=== PATIENT | female | born 1930 | race Hispanic/Latino ===

== ENCOUNTER 2019-08-24 19:10 | Inpatient (IN) | payer MEDICARE ==
[~2019-08-24] VITALS: Ht 157.5 cm; Wt 79.4 kg
[~2019-08-24 19:10] MED LIST: ACETTAB3 OR; ADULT ASPIRIN E81 MG PO; AMLODIPINE5 MG PO; ASA LOW DOSE81 MG OR; ECOTRIN325 MG OR; GENTAMICIN15 ML/BTL OP; HYDROCHLOROT12.5 MG PO; HYDROCORT2.5 % TOP; HYDROXYZ HCL25 MG PO; HYZAAR1 TA1 OR; LEVOTHROID50 MCG OR; LEVOTHYROXIN50 MCG PO; LEVOTHYROXIN75 MCG OR; LOSARTAN POTASS50 MG PO; MELOXICAM7.5 MG OR; NOVOLIN 70/30 SC; OMEPRAZOLE20 MG PO; TRAMADOL HCL50 MG PO; TRIPLE ANTI1 OP; TYLENOL # 31 TA1 PO; ULTRACET PO; ZOCOR20 MG OR
--- NOTE | 2019-08-24 19:30 | NUR ---
PT WHEELED TO ROOM 6
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
--- NOTE | 2019-08-24 19:32 | NUR ---
TOES TO RIGHT FOOT ARE PINK WARM AND MOVEABLE WITH GOOD CAPILLARY REFILL < 2 SEC.
--- NOTE | 2019-08-24 20:24 | NUR ---
IM MUSCLE RELAXANT AND IM PAIN MED GIVEN PER MD ORDER.
[2019-08-24 20:29] LABS: HEMOGLOBIN 8.6 g/dl (12.0-16.0); IMMATURE GRANULOCYTES 0.6 % (0.0-5.0); MEAN CELL VOLUME 97.1 fL CALC (80.0-100.0); NEUT# 7.91 thou/uL (2.00-7.15); RED BLOOD COUNT 2.77 mill/uL (4.20-5.60); RED CELL DISTRI WIDTH 12.7 % (11.5-15.5)
[2019-08-24 20:36] LABS: HEMATOCRIT 26.9 % (37.0-47.0)
[2019-08-24 20:48] LABS: ALBUMIN 3.4 g/dL (3.2-5.0); BILIRUBIN, TOTAL 0.4 mg/dL (0.0-1.4); CREATININE 1.5 mg/dL (0.5-1.0); POTASSIUM 4.5 mmol/l (3.5-5.1); TOTAL PROTEIN 6.7 g/dL (6.3-8.2)
--- NOTE | 2019-08-24 21:30 | NUR ---
Son of pt (Koffi) advised to call him when pt is discharged [phone]
[2019-08-24] MEDS ORDERED: LOSARTAN POTASS50 MG PO (22:19)
--- NOTE | 2019-08-24 22:40 | NUR ---
PT. PLACED ON BP, VOIDED QS STANISLAW URINE.
[2019-08-24 23:45] LABS: URINE BILIRUBIN - DIPSTICK NEGATIVE (NEGATIVE); URINE BLOOD DIPSTICK NEGATIVE (NEGATIVE); URINE CLARITY CLEAR; URINE COLOR YELLOW; URINE GLUCOSE - DIPSTICK NEGATIVE (NEGATIVE); URINE KETONE NEGATIVE (NEGATIVE); URINE LEUK ESTERASE NEGATIVE (Negative); URINE NITRITE - DIPSTICK NEGATIVE (Negative); URINE PROTEIN - DIPSTICK NEGATIVE (NEG-TRACE); URINE UROBILINOGEN - DIPSTICK 0.2 E.U./dL (0.2)
--- NOTE | 2019-08-24 23:58 | NUR ---
DR RAZA IN ROOM TO DISCUSS PROCEDURE TO PT. AND FAMILY.
[2019-08-25] VITALS (14 sets, daily range): BP systolic 96–197; BP diastolic 49–85
--- NOTE | 2019-08-25 00:05 | NUR ---
OR NURSES AT BEDSIDE GETTING CONSENTS.
--- NOTE | 2019-08-25 00:10 | NUR ---
PT. TO OR VIA STRETCHER, WITH OR TEAM.
--- NOTE | 2019-08-25 02:39 | NUR ---
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 IN ROOM CALL LIGHT AT REACH.
--- NOTE | 2019-08-25 04:22 | NUR ---
BP OF , SPOKE TO DR. IBANEZ WITH ORDERS MADE.
[2019-08-25 05:07] LABS: HEMATOCRIT 28.5 % (37.0-47.0); IMMATURE GRANULOCYTES 0.6 % (0.0-5.0); MEAN CELL VOLUME 97.9 fL CALC (80.0-100.0); MEAN CORPUSCULAR HGB 30.9 pG CALC (26.0-32.0); MEAN CORPUSCULAR HGB CONC 31.6 g/L CALC (32.0-36.0); NEUT# 6.12 thou/uL (2.00-7.15); RED BLOOD COUNT 2.91 mill/uL (4.20-5.60); RED CELL DISTRI WIDTH 12.6 % (11.5-15.5)
[2019-08-25 05:16] LABS: CREATININE 1.4 mg/dL (0.5-1.0); MAGNESIUM 1.7 mg/dL (1.6-2.3); POTASSIUM 4.2 mmol/l (3.5-5.1)
--- NOTE | 2019-08-25 05:30 | NUR ---
REPEAT BP 115/62
--- NOTE | 2019-08-25 05:30 | NUR ---
REPEAT BP 115/72.
--- NOTE | 2019-08-25 07:12 | NUR ---
REPORT FROM DESIREE SYED. PT RESTING IN BED WITH AT BEDSIDE. PT ALERT TO SELF, LIBERIAN SPEAKING ONLY. ABLE TO TRANSLATE. NO APPARENT DISTRESS NOTED. EXTERNAL FIXATOR NOTED TO RLE, ELEVATED ON PILLOWS. PT DENIES ANY PAIN OR DISCOMFORT AT THIS TIME. DISCUSSED POC WITH PT AND FAMILY. CALL LIGHT WITHIN REACH. WILL CONTINUE TO MONITOR.
--- NOTE | 2019-08-25 09:58 | NUR ---
SON ALEXI CALLED FOR UPDATE, PT AND GIVES PERMISSION FOR STREETCAR OPERATOR TO SPEAK TO SON AT THIS TIME.
--- NOTE | 2019-08-25 11:19 | NUR ---
PHYSICIAN AT BEDSIDE TO DISCUSSED POC.
--- NOTE | 2019-08-25 11:57 | NUR ---
BLEEDING NOTED AROUND PIN OF EXTERNAL FIXATOR ON NEAR HEEL. MDS RN NOTIFIED. WRAPPED WITH 4X4 AND KERLIX AND CONTINUE TO MONITOR FOR BLEEDING ORDERED.
--- NOTE | 2019-08-25 14:51 | NUR ---
PT RESTING IN BED WITH EYES CLOSED. NO APPARENT DISTRESS NOTED. AT BEDSIDE. RIGHT LEG ELEVATED ON PILLOWS. NO BLEEDING THROUGH KERLIX NOTED. HOSPITAL EDUCATOR AWARE. CALL LIGHT WITHIN REACH. WILL CONTINUE TO MONITOR.
--- NOTE | 2019-08-25 20:10 | NUR ---
PT RESTING IN BED, ALERT TO SELF. AT BEDSIDE. RESPIRATIONS EVEN AND UNLABORED, LUNGS SOUND DIMINISHED. #20 LAC PATENT AND APPEARS HEALTHY. TELE IN PLACE. EXTERNAL FIXATOR RLE. SAFETY PRECAUTIONS IN PLACE. WILL CONTINUE TO MONITOR.
--- NOTE | 2019-08-26 00:05 | NUR ---
PT RESTING IN BED, RESPIRRATIONS EVEN AND UNLABORED. SAFETY PRECAUTIONS IN PLACE. WILL CONTINUE TO MONITOR.
[2019-08-26 04:09] VITALS: BP 126/56
--- NOTE | 2019-08-26 04:14 | NUR ---
PT RESTING IN BED. RESPIRATIONS EVEN AND UNLABORED. NO S/S OF DISTRESS AT THIS TIME. WILL CONTINUE TO MONITOR.
[2019-08-26 05:13] LABS: HEMATOCRIT 26.9 % (37.0-47.0); HEMOGLOBIN 8.2 g/dl (12.0-16.0); IMMATURE GRANULOCYTES 0.4 % (0.0-5.0); MEAN CELL VOLUME 101.5 fL CALC (80.0-100.0); MEAN CORPUSCULAR HGB 30.9 pG CALC (26.0-32.0); MEAN CORPUSCULAR HGB CONC 30.5 g/L CALC (32.0-36.0); NEUT# 4.37 thou/uL (2.00-7.15); RED BLOOD COUNT 2.65 mill/uL (4.20-5.60); RED CELL DISTRI WIDTH 12.9 % (11.5-15.5)
[2019-08-26 05:26] LABS: CREATININE 1.3 mg/dL (0.5-1.0); POTASSIUM 4.4 mmol/l (3.5-5.1)
[2019-08-26 07:26] VITALS: BP 141/68
--- NOTE | 2019-08-26 09:37 | NUR ---
ASSESSMENT DONE. PT IS ALERT X2. PT STATED PAIN IN RIGHT LEG. MEDICATED PT WITH PERCOCET. TELE IN PLACE. RIGHT LEG DRESSING IN PLACE WITH EXTERNAL FIXATOR CDI. PT IN ROOM. IVF INFUSING WELL. PT INCONTINENT WITH YELLOW URINE X2 PERSON ASSIST PT TO TURN. DARCY CARE DONE. PT DENIES ANY OTHER NEEDS AT THIS TIME. SAFETY PREAUTIONS REINFORCED AND CALL LIGHT IN REACH.
[2019-08-26 10:48] VITALS: BP 159/60
--- NOTE | 2019-08-26 12:30 | NUR ---
PT STATED SHE WAS ABLE TO EAT MORE TODAY. RIGHT LEG ELEVATED IN PILLOW. PT DENIES PAIN AT THIS TIME. PT WONDERING WHEN SHE IS GOING TO GO HOME. TOLD HER WE HAVE TO WAIT FOR THE DOCTOR. PT VERBALIZED UNDERSTANDING . PT IN ROOM. CALL LIGHT IN REACH.
--- NOTE | 2019-08-26 15:52 | NUR ---
PT IS ALERT X1 AT THIS TIME. PT STATED PAIN IN LEG. MEDICATED PT WITH PERCOCET. RIGHT LEG ELEVATED IN PILLOW. PO FLUIDS PROVIDED. EDUCATED PT AND HOW TO USE THE I.S. SCD IN PLACE. CALL LIGHT IN REACH.
[2019-08-26 16:54] VITALS: BP 122/62
[2019-08-26 18:35] VITALS: BP 165/89
--- NOTE | 2019-08-26 19:05 | NUR ---
REPORT RECEIVED FROM KUNAL BABIN. PT RESTING IN BED. FAMILY AT BEDSIDE. NO S/S OF DISTRESS AT THIS TIME. SAFETY PRECAUTIONS IN PLACE. WILL CONTINUE TO MONITOR.
--- NOTE | 2019-08-26 21:05 | NUR ---
PT RESTING IN BED. RESPIRATIONS EVEN AND UNLABORED. LUNGS SOUND CLEAR/DIMINISHED. PT DENIES ANY PAIN OR DISCOMFORT AT THIS TIME. SAFETY PRECAUTIONS IN PLACE. WILL CONTINUE TO MONITOR.
[2019-08-26 23:43] VITALS: BP 131/70
--- NOTE | 2019-08-27 00:16 | NUR ---
PT RESTING IN BED. RESPIRATIONS EVEN AND UNLABORED. NO S/S OF DISTRESS AT THIS TIME. WILL CONTIUNE TO MONITOR.
[2019-08-27 03:35] VITALS: BP 158/70
--- NOTE | 2019-08-27 04:00 | NUR ---
PT RESTING IN BED. RESPIRATIONS EVEN AND UNLABORED ON RA. SAFETY PRECAUTIONS IN PLACE. WILL CONTINUE TO MONITOR.
[2019-08-27 05:16] LABS: HEMATOCRIT 25.8 % (37.0-47.0); MEAN CELL VOLUME 98.5 fL CALC (80.0-100.0); MEAN CORPUSCULAR HGB 30.5 pG CALC (26.0-32.0); RED BLOOD COUNT 2.62 mill/uL (4.20-5.60); RED CELL DISTRI WIDTH 12.8 % (11.5-15.5)
[2019-08-27 05:35] LABS: CREATININE 1.3 mg/dL (0.5-1.0); POTASSIUM 4.8 mmol/l (3.5-5.1)
--- NOTE | 2019-08-27 07:52 | NUR ---
Pt. lying in bed. Spouse at bedside. Assessment completed. Skin assesment remarkable for bruising on the right upper back behind the shoulder blade that also comes around under the right breast. Nurse Shaunna and AINSLEY Villatoro aware. Photo taken by Maurisio. Complete bed bath performed. Pedal pulses in both left and right extremity weak and thready. Also notified Shaunna, plan of care is to acquire doppler from ICU to assess pedal pulses. Pt medicated for pain. No s/s of distress. Bed low and locked. Call light and phone within reach. Will continue to monitor. Pt stable.
[2019-08-27 08:09] VITALS: BP 162/67
--- NOTE | 2019-08-27 08:35 | NUR ---
ASSESSMENT DONE. PT IS A&O X2. PT STATED THAT PAIN MEDICATION HELPED AND DENIES PAIN AT THIS TIME. IVF INFUSING WELL. RIGHT LEG ELEVATED IN PILLOW. RIGHT LEG DRESSING IN PLACE WITH EXTERNAL FIXATOR. PT RIGHT FOOT FEEL COOL BUT PT ABLE TO FEEL WHEN TOUCH . IN ROOM. CALL LIGHT IN REACH. LIZZ WILKINS AWARE OF PT COOL FOOT.
[2019-08-27 10:45] VITALS: BP 168/67
--- NOTE | 2019-08-27 11:00 | NUR ---
Popliteal pulse located on the doppler. Pt tolerated well. Nurse Paula and AINSLEY Villatoro notified. Bed low and locked. Call light and phone within reach. Will contine to monitor. Pt stable, resting with eyes closed.
--- NOTE | 2019-08-27 11:05 | NUR ---
DR. GAMEZ AND LIZZ WILKINS IN ROOM TO ASSESS PT. FAMILY IN ROOM. CALL LIGHT IN REACH.
--- NOTE | 2019-08-27 13:51 | NUR ---
Pt lying in bed with eyes closed. Denies pain. No s/s of distress. Spouse at bedside. Nystatin applied to groin and under breast. Pt states "That feels better." Fluids provided/ assisted pt to reposition. Told pt to notfy me or Cornelioli is she has pain. Bed low and locked. Call light and phone within reach. Will continue to monitor. Pt stable.
[2019-08-27 15:00] VITALS: BP 145/60
--- NOTE | 2019-08-27 16:06 | NUR ---
PT IS RESTING IN BED WITH NO S/S OF DISTRESS NOTED. PT DENIES ANY NEEDS AT THIS TIME. CALL LIGHT IN REACH. IN ROOM.
--- NOTE | 2019-08-27 16:54 | NUR ---
DR. RAZA CALLED FOR UPDATE ON PT. ALSO, STATED THAT SHE WILL BE HAVING SURGERY TUE. IN ED [facility].
[2019-08-27 18:28] VITALS: BP 152/76
--- NOTE | 2019-08-27 19:25 | NUR ---
PT RESTING IN BED WITH FAMILY AT BEDSIDE. A&O X3. RT LEG ELEVATED WITH PILLOW. TIMO WRAP DRESSING CDI. NO COMPLAINTS OF PAIN AT THIS TIME. DISCUSSED POC. NO FURTHER NEEDS AT THIS TIME. CALL LIGHT IN REACH. CONTINUE TO MONITOR.
[2019-08-27 23:04] VITALS: BP 135/67
--- NOTE | 2019-08-28 00:01 | NUR ---
PT SLEEPING IN BED. NO SIGNS OF DISTRESS. CONTINUE TO MONITOR.
[2019-08-28 03:37] VITALS: BP 157/76
--- NOTE | 2019-08-28 04:00 | NUR ---
PT SLEEPING IN BED WITH AT BEDSIDE. NO DISTRESS NOTED. CONTINUE TO MONITOR.
[2019-08-28 07:29] VITALS: BP 182/75
--- NOTE | 2019-08-28 07:30 | NUR ---
ASSESSMENT DONE. PT IS A&O X1. PT IS MOANING . PT STATED SHE HAS PAIN IN RIGHT FOOT. MEDICATED PT WITH PERCOCET. RIGHT LEG DRESSING IN PLACE WITH EXTERNAL FIXATOR. RIGHT LEG ELEVATED IN PILLOW. TELE IN PLACE. PO FLUIDS PROVIDED. IN ROOM. CALL LIGHT IN REACH.
[2019-08-28 08:30] VITALS: BP 146/55
[2019-08-28 10:48] VITALS: BP 140/68
--- NOTE | 2019-08-28 11:44 | NUR ---
PT STATED PAIN IN KNEE. MEDICATED PT WITH PERCOCET AND PO FLUIDS PROVIDED. LEG ELEVATED IN PILLOW. PT DENIES ANY OTHER NEEDS AT THIS TIME. CALL LIGHT IN REACH.
[2019-08-28] MEDS ORDERED: LOVENOX30 MG/0.3 SC (12:43)
[2019-08-28] MEDS ORDERED: PERCOCET 10/31 COMBO PO (12:43)
[2019-08-28 15:59] VITALS: BP 160/70
--- NOTE | 2019-08-28 20:01 | NUR ---
Discharge instructions given. Patient verbalizes understanding of same. Discharged in stable condition via Wheelchair to [facility] with staff. All belongings sent with pt. REPORT GIVEN TO NURSE NALINI FROM REHAB.
== END 2019-08-28 20:05 | DRG 493 ==
LOC: ED 19:10 → ED-I 22:45 → ED 23:16 → MS2 23:17
PROVIDERS: Emergency Medicine; Nurse Practitioner Family; ADMIT Internal Medicine; ATTEND Internal Medicine
PROC: 0QHG35Z Insertion of External Fixation Device into Right Tibia, Percutaneous Approach (ICD-10-PCS; principal; 2019-08-25)
PROC: 0SSFXZZ Reposition Right Ankle Joint, External Approach (ICD-10-PCS; 2019-08-25)
DX: S82.841A Displaced bimalleolar fracture of right lower leg, initial encounter for closed fracture (principal); I69.951 Hemiplegia and hemiparesis following unspecified cerebrovascular disease affecting right dominant side; N17.9 Acute kidney failure, unspecified; S93.431A Sprain of tibiofibular ligament of right ankle, initial encounter; E11.22 Type 2 diabetes mellitus with diabetic chronic kidney disease; I12.9 Hypertensive chronic kidney disease with stage 1 through stage 4 chronic kidney disease, or unspecified chronic kidney disease; N18.3 Chronic kidney disease, stage 3 (moderate); L30.4 Erythema intertrigo; F03.90 Unspecified dementia, unspecified severity, without behavioral disturbance, psychotic disturbance, mood disturbance, and anxiety; D64.9 Anemia, unspecified; I69.992 Facial weakness following unspecified cerebrovascular disease; F32.9 Major depressive disorder, single episode, unspecified; K59.00 Constipation, unspecified; F41.9 Anxiety disorder, unspecified; E03.9 Hypothyroidism, unspecified; S90.414A Abrasion, right lesser toe(s), initial encounter; W18.30XA Fall on same level, unspecified, initial encounter; Y92.009 Unspecified place in unspecified non-institutional (private) residence as the place of occurrence of the external cause; Z91.81 History of falling; Z79.4 Long term (current) use of insulin
CPT/HCPCS: J0131; J1650

== ENCOUNTER 2019-09-21 21:49 | Inpatient (IN) | payer MEDICARE ==
[~2019-09-21] VITALS: Ht 157.5 cm; Wt 81.4 kg
[~2019-09-21 21:49] MED LIST changes: +LOVENOX30 MG/0.3 SC; +PERCOCET 10/31 COMBO PO
[2019-09-21 22:28] LABS: HEMOGLOBIN 8.6 g/dl (12.0-16.0); IMMATURE GRANULOCYTES 0.6 % (0.0-5.0); MEAN CELL VOLUME 97.9 fL CALC (80.0-100.0); MEAN CORPUSCULAR HGB 30.1 pG CALC (26.0-32.0); MEAN CORPUSCULAR HGB CONC 30.7 g/L CALC (32.0-36.0); NEUT# 6.68 thou/uL (2.00-7.15); RED BLOOD COUNT 2.86 mill/uL (4.20-5.60); RED CELL DISTRI WIDTH 13.8 % (11.5-15.5)
[2019-09-21] MEDS ORDERED: FUROSEMIDE20 MG PO (22:29)
[2019-09-21] MEDS ORDERED: LEXAPRO10 MG PO (22:32)
[2019-09-21] MEDS ORDERED: MULTI VIT PO (22:34)
[2019-09-21] MEDS ORDERED: OMEPRAZOLE DR20 MG PO (22:37)
[2019-09-21] MEDS ORDERED: ZOFRAN8 MG PO (22:40)
[2019-09-21 22:45] LABS: ALBUMIN 3.1 g/dL (3.2-5.0); BILIRUBIN, TOTAL 0.4 mg/dL (0.0-1.4); TOTAL PROTEIN 7.1 g/dL (6.3-8.2)
[2019-09-21 22:47] LABS: CREATININE 6.9 mg/dL (0.5-1.0); MAGNESIUM 2.3 mg/dL (1.6-2.3)
[2019-09-22] VITALS (15 sets, daily range): BP systolic 110–220; BP diastolic 49–95
[2019-09-22 06:21] LABS: CREATININE 5.8 mg/dL (0.5-1.0); POTASSIUM 5.5 mmol/l (3.5-5.1)
[2019-09-23 00:40] VITALS: BP 166/71
[2019-09-23 03:58] VITALS: BP 156/65
[2019-09-23 04:18] LABS: HEMATOCRIT 26.4 % (37.0-47.0); HEMOGLOBIN 8.1 g/dl (12.0-16.0); MEAN CELL VOLUME 99.2 fL CALC (80.0-100.0); MEAN CORPUSCULAR HGB 30.5 pG CALC (26.0-32.0); MEAN CORPUSCULAR HGB CONC 30.7 g/L CALC (32.0-36.0); RED BLOOD COUNT 2.66 mill/uL (4.20-5.60); RED CELL DISTRI WIDTH 14.1 % (11.5-15.5)
[2019-09-23 04:54] LABS: ALBUMIN 2.6 g/dL (3.2-5.0); MAGNESIUM 1.9 mg/dL (1.6-2.3)
[2019-09-23 05:04] LABS: CREATININE 4.3 mg/dL (0.5-1.0)
[2019-09-23 05:05] LABS: POTASSIUM 5.5 mmol/l (3.5-5.1)
[2019-09-23 16:00] VITALS: BP 126/57
[2019-09-23 19:23] VITALS: BP 118/61
[2019-09-23 20:21] LABS: URINE BILIRUBIN - DIPSTICK NEGATIVE (NEGATIVE); URINE BLOOD DIPSTICK SMALL (NEGATIVE); URINE COLOR YELLOW; URINE GLUCOSE - DIPSTICK NEGATIVE (NEGATIVE); URINE KETONE NEGATIVE (NEGATIVE); URINE LEUK ESTERASE NEGATIVE (NEGATIVE); URINE NITRITE - DIPSTICK NEGATIVE (Negative); URINE PH 5.5 (4.5-8.0); URINE PROTEIN - DIPSTICK TRACE mg/dL (NEG-TRACE); URINE SPECIFIC GRAVITY >=1.030; URINE UROBILINOGEN - DIPSTICK 0.2 E.U./dL (0.2)
[2019-09-23 20:30] LABS: URINE SQUAMOUS EPITHELIAL CELL FEW EPI/hpf (0-FEW); URINE WBC 0-2 WBC/hpf (0-5)
[2019-09-23 23:44] VITALS: BP 136/61
[2019-09-24 04:13] VITALS: BP 154/65
[2019-09-24 05:07] LABS: HEMATOCRIT 24.4 % (37.0-47.0); HEMOGLOBIN 7.7 g/dl (12.0-16.0); MEAN CELL VOLUME 97.2 fL CALC (80.0-100.0); MEAN CORPUSCULAR HGB 30.7 pG CALC (26.0-32.0); MEAN CORPUSCULAR HGB CONC 31.6 g/L CALC (32.0-36.0); RED BLOOD COUNT 2.51 mill/uL (4.20-5.60)
[2019-09-24 05:21] LABS: MAGNESIUM 1.8 mg/dL (1.6-2.3)
[2019-09-24 05:26] LABS: CREATININE 2.9 mg/dL (0.5-1.0); POTASSIUM 4.1 mmol/l (3.5-5.1)
[2019-09-24 08:32] VITALS: BP 168/65
[2019-09-24 11:05] VITALS: BP 107/53
[2019-09-24 15:19] VITALS: BP 119/56
[2019-09-24 19:20] VITALS: BP 109/54
[2019-09-24 23:56] VITALS: BP 149/43
[2019-09-25 03:27] VITALS: BP 160/67
[2019-09-25 06:03] LABS: ALBUMIN 2.6 g/dL (3.2-5.0); POTASSIUM 3.5 mmol/l (3.5-5.1)
[2019-09-25 06:13] LABS: CREATININE 1.5 mg/dL (0.5-1.0)
[2019-09-25 08:00] VITALS: BP 132/91
[2019-09-25 10:44] LABS: URINE BILIRUBIN - DIPSTICK NEGATIVE (NEGATIVE); URINE BLOOD DIPSTICK LARGE (NEGATIVE); URINE GLUCOSE - DIPSTICK 100 mg/dL (NEGATIVE); URINE KETONE NEGATIVE (NEGATIVE); URINE PH 7.5 (4.5-8.0); URINE PROTEIN - DIPSTICK 100 mg/dL (NEG-TRACE)
[2019-09-25 10:52] LABS: HEMATOCRIT 24.4 % (37.0-47.0); HEMOGLOBIN 7.5 g/dl (12.0-16.0); MEAN CELL VOLUME 99.6 fL CALC (80.0-100.0); MEAN CORPUSCULAR HGB 30.6 pG CALC (26.0-32.0); MEAN CORPUSCULAR HGB CONC 30.7 g/L CALC (32.0-36.0); RED BLOOD COUNT 2.45 mill/uL (4.20-5.60); RED CELL DISTRI WIDTH 14.2 % (11.5-15.5)
[2019-09-25 11:06] LABS: URINE COLOR DK. YELLOW; URINE LEUK ESTERASE MODERATE (NEGATIVE); URINE NITRITE - DIPSTICK POSITIVE (Negative)
[2019-09-25 11:07] LABS: URINE BACTERIA MANY hpf; URINE EPITHELIAL CELLS MANY EPI/hpf (0-FEW); URINE RBC 25-50 RBC/hpf (0-5)
[2019-09-25 15:46] VITALS: BP 172/60
[2019-09-25 23:18] VITALS: BP 193/67
[2019-09-25 23:50] VITALS: BP 158/64
[2019-09-26] VITALS (11 sets, daily range): BP systolic 132–178; BP diastolic 48–70
[2019-09-26 05:03] LABS: HEMATOCRIT 22.3 % (37.0-47.0); HEMOGLOBIN 7.1 g/dl (12.0-16.0); IMMATURE GRANULOCYTES 1.3 % (0.0-5.0); MEAN CELL VOLUME 96.1 fL CALC (80.0-100.0); MEAN CORPUSCULAR HGB 30.6 pG CALC (26.0-32.0); MEAN CORPUSCULAR HGB CONC 31.8 g/L CALC (32.0-36.0); NEUT# 7.79 thou/uL (2.00-7.15); RED BLOOD COUNT 2.32 mill/uL (4.20-5.60); RED CELL DISTRI WIDTH 14.2 % (11.5-15.5)
[2019-09-26 05:08] LABS: CREATININE 1.1 mg/dL (0.5-1.0); MAGNESIUM 1.4 mg/dL (1.6-2.3); POTASSIUM 2.9 mmol/l (3.5-5.1)
[2019-09-27 00:05] VITALS: BP 152/65
[2019-09-27 00:50] VITALS: BP 160/64
[2019-09-27 03:10] VITALS: BP 103/61
[2019-09-27 05:36] LABS: MEAN CELL VOLUME 95.4 fL CALC (80.0-100.0); MEAN CORPUSCULAR HGB 30.4 pG CALC (26.0-32.0); MEAN CORPUSCULAR HGB CONC 31.8 g/L CALC (32.0-36.0); NEUT# 6.21 thou/uL (2.00-7.15); RED BLOOD COUNT 3.03 mill/uL (4.20-5.60); RED CELL DISTRI WIDTH 14.8 % (11.5-15.5)
[2019-09-27 05:39] LABS: HEMATOCRIT 28.9 % (37.0-47.0); HEMOGLOBIN 9.2 g/dl (12.0-16.0)
[2019-09-27 05:44] LABS: ANION GAP 8 (6-22 (CALC)); BUN 18 mg/dL (8-23); BUN/CREATININE RATIO 21 (12-20 (CALC)); CARBON DIOXIDE 23 mmol/l (22-30); CHLORIDE 113 mmol/l (95-108); CREATININE 0.9 mg/dL (0.5-1.0); GFR 59 ML/MIN (>=60 (CALC)); GFR FOR AFR.AMER. > 60 ML/MIN (>=60 (CALC)); SODIUM 141 mmol/l (137-146)
[2019-09-27 07:37] VITALS: BP 193/75
[2019-09-27 11:06] VITALS: BP 171/68
[2019-09-27] MEDS ORDERED: CIPROFLOXACN500 MG PO (14:09)
== END 2019-09-27 17:00 | DRG 683 ==
LOC: ED 21:49 → ED-I 23:00 → ED 23:15 → ICU 23:16 → MS2 09-22 08:05 → ICU 09-22 08:05 → MS2 09-22 21:55
PROVIDERS: Internal Medicine Nephrology; Nurse Practitioner Family; ADMIT Internal Medicine; ATTEND Internal Medicine
PROC: 0T9B70Z Drainage of Bladder with Drainage Device, Via Natural or Artificial Opening (ICD-10-PCS; principal; 2019-09-23)
PROC: 30233N1 Transfusion of Nonautologous Red Blood Cells into Peripheral Vein, Percutaneous Approach (ICD-10-PCS; 2019-09-26)
DX: N17.9 Acute kidney failure, unspecified (principal); E87.2 Acidosis; N39.0 Urinary tract infection, site not specified; T83.511A Infection and inflammatory reaction due to indwelling urethral catheter, initial encounter; I69.951 Hemiplegia and hemiparesis following unspecified cerebrovascular disease affecting right dominant side; E87.5 Hyperkalemia; I16.0 Hypertensive urgency; I12.9 Hypertensive chronic kidney disease with stage 1 through stage 4 chronic kidney disease, or unspecified chronic kidney disease; E11.22 Type 2 diabetes mellitus with diabetic chronic kidney disease; N18.3 Chronic kidney disease, stage 3 (moderate); F03.90 Unspecified dementia, unspecified severity, without behavioral disturbance, psychotic disturbance, mood disturbance, and anxiety; E03.9 Hypothyroidism, unspecified; D63.1 Anemia in chronic kidney disease; E87.6 Hypokalemia; E83.42 Hypomagnesemia; R07.9 Chest pain, unspecified; F32.9 Major depressive disorder, single episode, unspecified; F41.9 Anxiety disorder, unspecified; E86.0 Dehydration; T46.5X5A Adverse effect of other antihypertensive drugs, initial encounter; T50.1X5A Adverse effect of loop [high-ceiling] diuretics, initial encounter; E83.39 Other disorders of phosphorus metabolism; S82.841D Displaced bimalleolar fracture of right lower leg, subsequent encounter for closed fracture with routine healing; W19.XXXD Unspecified fall, subsequent encounter; B96.4 Proteus (mirabilis) (morganii) as the cause of diseases classified elsewhere; Y84.6 Urinary catheterization as the cause of abnormal reaction of the patient, or of later complication, without mention of misadventure at the time of the procedure; Z79.4 Long term (current) use of insulin
CPT/HCPCS: J3475; P9016

== ENCOUNTER 2019-09-29 | Emergency (ER) | payer MEDICARE ==
[~2019-09-29] MED LIST changes: +CIPROFLOXACN500 MG PO; +FUROSEMIDE20 MG PO; +LEXAPRO10 MG PO; +MULTI VIT PO; +OMEPRAZOLE DR20 MG PO; +ZOFRAN8 MG PO
[2019-09-29 18:58] LABS: HEMATOCRIT 31.4 % (37.0-47.0); IMMATURE GRANULOCYTES 0.4 % (0.0-5.0); MEAN CELL VOLUME 95.2 fL CALC (80.0-100.0); MEAN CORPUSCULAR HGB 30.3 pG CALC (26.0-32.0); MEAN CORPUSCULAR HGB CONC 31.8 g/L CALC (32.0-36.0); NEUT# 9.55 thou/uL (2.00-7.15); RED BLOOD COUNT 3.3 mill/uL (4.20-5.60); RED CELL DISTRI WIDTH 14.9 % (11.5-15.5)
[2019-09-29 19:11] LABS: ALBUMIN 2.9 g/dL (3.2-5.0); BILIRUBIN, TOTAL 0.4 mg/dL (0.0-1.4); CREATININE 1.2 mg/dL (0.5-1.0); POTASSIUM 3.5 mmol/l (3.5-5.1); TOTAL PROTEIN 6.7 g/dL (6.3-8.2)
== END 2019-09-29 23:10 ==
PROVIDERS: Family Medicine
DX: E11.649 Type 2 diabetes mellitus with hypoglycemia without coma (principal); I10 Essential (primary) hypertension; E03.9 Hypothyroidism, unspecified; F03.90 Unspecified dementia, unspecified severity, without behavioral disturbance, psychotic disturbance, mood disturbance, and anxiety; Z86.73 Personal history of transient ischemic attack (TIA), and cerebral infarction without residual deficits; Z79.4 Long term (current) use of insulin

== ENCOUNTER 2020-01-21 20:00 | Inpatient (IN) | payer MEDICARE, MEDICAID ==
[~2020-01-21] VITALS: Ht 157.5 cm; Wt 54.0 kg
--- NOTE | 2020-01-21 20:00 | NUR ---
PT. TO ROOM 9 VIA EMS WITH C/O ELEVATED BUN AND CREANTINE. DRESSING TO RIGHT FOOT. RIGHT HAND AND ARM CONTRACTED. PT. IS NONVERBAL. EMS STATES ALGERIAN SPEAKING ONLY. ALGERIAN SPEAKING STAFF TRIED TO CONVERSE WITH PT. PT. DID NOT RESPOND.
[2020-01-21 20:24] LABS: IMMATURE GRANULOCYTES 0.4 % (0.0-5.0); MEAN CELL VOLUME 92.6 fL CALC (80.0-100.0); MEAN CORPUSCULAR HGB 29.7 pG CALC (26.0-32.0); NEUT# 5.09 thou/uL (2.00-7.15); RED BLOOD COUNT 4.48 mill/uL (4.20-5.60); RED CELL DISTRI WIDTH 15.1 % (11.5-15.5)
[2020-01-21 20:25] LABS: HEMATOCRIT 41.5 % (37.0-47.0); HEMOGLOBIN 13.3 g/dl (12.0-16.0)
--- NOTE | 2020-01-21 20:35 | NUR ---
IVF STARTED PER MD ORDER.
[2020-01-21 20:37] LABS: ALKALINE PHOSPHATASE 156 u/l (38-126); CHLORIDE 110 mmol/l (95-108); SGOT/AST 43 u/l (9-36); SODIUM 143 mmol/l (137-146)
[2020-01-21 20:46] LABS: ALBUMIN 3.9 g/dL (3.2-5.0); ANION GAP 22 (6-22 (CALC)); BILIRUBIN, TOTAL 0.7 mg/dL (0.0-1.4); BUN/CREATININE RATIO 42 (12-20 (CALC)); CARBON DIOXIDE 16 mmol/l (22-30); CPK < 20 u/l (30-165); CREATININE 4.4 mg/dL (0.5-1.0); GFR 9 ML/MIN (>=60 (CALC)); GFR FOR AFR.AMER. 11 ML/MIN (>=60 (CALC)); MAGNESIUM 2.6 mg/dL (1.6-2.3); POTASSIUM 4.5 mmol/l (3.5-5.1); TOTAL PROTEIN 8.1 g/dL (6.3-8.2)
[2020-01-21 20:47] LABS: BUN 185 mg/dL (8-23)
[2020-01-21 20:56] LABS: URINE BLOOD DIPSTICK LARGE (NEGATIVE); URINE COLOR BROWN; URINE GLUCOSE - DIPSTICK NEGATIVE (NEGATIVE); URINE KETONE TRACE mg/dL (NEGATIVE); URINE LEUK ESTERASE MODERATE (NEGATIVE); URINE NITRITE - DIPSTICK NEGATIVE (Negative); URINE PH 8.5 (4.5-8.0); URINE PROTEIN - DIPSTICK >=300 mg/dL (NEG-TRACE)
[2020-01-21 20:57] LABS: URINE AMORPH SEDIMENT MANY hpf (NONE-FEW); URINE BACTERIA MODERATE hpf; URINE BILIRUBIN - DIPSTICK NEGATIVE (NEGATIVE); URINE SQUAMOUS EPITHELIAL CELL FEW EPI/hpf (0-FEW); URINE WBC TNTC WBC/hpf (0-5)
--- NOTE | 2020-01-21 21:00 | NUR ---
TIMO WRAP REMOVED FROM RIGHT FOOT. SKIN TEAR NOTED TO DORSAL SECTION OF RIGHT FOOT AND OUTER ASPECT OF RIGHT ANKLE. ALSO CLUSTER PRESSURE WOUNDS NOTED TO SACRUM.
[2020-01-21 21:09] LABS: TSH, 3RD GENERATION 3.06 uIU/mL (0.47 - 4.68)
--- NOTE | 2020-01-21 21:15 | NUR ---
SPOKE W/ ROSY SYED AT [facility] AND [facility] ABOUT IF THE PT HAS BEEN TESTED FOR COVID-19 AND SHE INFORMED ME THAT THE PT HAS NOT BEEN TESTED AT THIS TIME.
[2020-01-21] MEDS ORDERED: MIRTAZAPINE15 MG PO (22:08)
[2020-01-21] MEDS ORDERED: DOXYCYCL HYC100 MG PO (22:10)
--- NOTE | 2020-01-21 22:16 | NUR ---
IV ABT. STARTED PER MD ORDER.
--- NOTE | 2020-01-21 22:31 | NUR ---
Admission Note Report Given to: NORMA ESPARZA Transported by: Wheelchair X Stretcher Transported with: X Nurse Transporter X Patent IV O2 Broke Man Location: ICU X MS2
--- NOTE | 2020-01-21 23:00 | NUR ---
PT. TAKEN TO [place] FLOOR VIA STRETCHER, NO C/O.
[2020-01-21 23:15] VITALS: BP 96/58
--- NOTE | 2020-01-21 23:15 | NUR ---
PT ARRIVED VIA STRETCHER ACCOMPAINED BY ER STAFF. PT ALERT TO VERBAL STIMULI. NONVERBAL. SHAKES HEAD TO ANSWER SOME QUESTIONS. PT SLID FROM STRETCHER TO BED X3 PERSON ASSIST. RIGHT SIDE FLACID AND RIGHT HAND CONTRACTURE NOTED WITH CORTEZ ROLL IN PLACE. PT INCONTINENT OF URINE, BRIEF REMOVED, FOUL ODOR AND DARK URINE NOTED. PERICARE PROVIDED AT THIS TIME, PURWIK APPLIED. SKIN BREAK DOWN NOTED TO COCCYX, BARRIER CREAM APPLIED. PT POSITIONED WITH PILLOWS TO OFFLOAD. POOR ORAL HYGIENE, TOP DENTURES REMOVED NO BOTTOM DENTURES NOTED, MOUTH CARE PROVIDED AT THIS TIME. PT TOLERATED WELL. O2 SATS LOW 80S PT PLACED ON 3L/M VIA NC, SAT NOW 94-98%, NO APPARENT RESPIRATORY DISTRESS NOTED. PT SHAKES HEAD NO WHEN ASKED IF SHE HAD ANY PAIN. CALL LIGHT WITHIN REACH AND BED ALARM FOR SAFETY. WILL CONTINUE TO MONITOR.
--- NOTE | 2020-01-22 03:46 | NUR ---
PT RESTING IN BED WITH EYES CLOSED. NO APPARENT DISTRESS NOTED. RESPIRATIONS EVEN AND UNLABORED. PURWIK FUNCTIONING PROPERLY, WITH CLOUDY DARK YELLOW OUTPUT NOTED. CALL LIGHT WITHIN REACH. WILL CONTINUE TO MONITOR.
[2020-01-22 04:42] LABS: HEMATOCRIT 38.6 % (37.0-47.0); HEMOGLOBIN 12.3 g/dl (12.0-16.0); IMMATURE GRANULOCYTES 0.3 % (0.0-5.0); MEAN CELL VOLUME 93.9 fL CALC (80.0-100.0); MEAN CORPUSCULAR HGB 29.9 pG CALC (26.0-32.0); MEAN CORPUSCULAR HGB CONC 31.9 g/dL CAL (32.0-36.0); NEUT# 5.15 thou/uL (2.00-7.15); RED BLOOD COUNT 4.11 mill/uL (4.20-5.60); RED CELL DISTRI WIDTH 15.1 % (11.5-15.5)
[2020-01-22 05:01] LABS: CREATININE 3.9 mg/dL (0.5-1.0); POTASSIUM 4.5 mmol/l (3.5-5.1)
[2020-01-22 05:16] VITALS: BP 158/74
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
[2020-01-22 08:00] VITALS: BP 136/70
--- NOTE | 2020-01-22 11:34 | NUR ---
PT RESTING IN SEMI FOWLERS POSTION. BREATHING IS EVEN AND UNLABORED. PT ON 3L OF 02 NASAL CANNULA. IV RUNNING AT 125 ML, SITE APPEARS HEALTHY AND PATENT.NO SIGNS OF ANY PAIN OR DISCOMFORTS AT THIS TIME, ALL SAFTEY PRECAUTIONS IN PLACE WITH THE BED ALARM ACTIVED AND CALL LIGHT IN REACH. WILL CONTINUE TO MONITOR.
--- NOTE | 2020-01-22 12:15 | NUR ---
DR. GAMEZ AT PT BED SIDE DISCUSSING POC TRANSLATION PROVIDED BY VILMA BLACKMON.
--- NOTE | 2020-01-22 16:05 | NUR ---
PT TRANSFERED FROM OUT OF ISOLATION HALLWAY ROOM 291 TO ROOM 270. PT IS NOW RESTING IN LOW FOWLERS POSITION. BREATHING IS EVEN AND UNLABORED ON 3L O2 NASAL CANNULA.IV RUNNING AT 125 ML, SITE APPEARS HEALTHY AND PATENT.PT ACCUCHECK 56, TWO CUPS OF ORANGE JUICE AND PUDDING PROVIDED. THERE ARE NO SIGNS OF ANY PAIN OR DISCOMFORTS AT THIS TIME. ALL SAFTEY PRECAUTIONS IN PLACE WITH CALL LIGHT IN REACH AND BED ALARM ACTIVATED. WILL FOLLOW UP WITH BLOOD SUGAR AND CONTINUE TO MONITOR.
[2020-01-22 16:31] VITALS: BP 109/59
--- NOTE | 2020-01-22 17:45 | NUR ---
BLOOD SUGAR RECHECK 98.
--- NOTE | 2020-01-22 18:29 | NUR ---
PT SLEEPING IN LOW FOWLERS POSTION.BREATHING IS EVEN AND UNLABORED ON 3L O2 NASAL CANNULA . IV RUNNING AT 125 ML NS , SITE APPEARS HEALTHY AND PATENT.NO SIGNS OF ANY PAIN OR DISCOMFORTS AT THIS TIME. ALL SAFTEY PRECAUTIONS IN PLACE WITH CALL LIGHT IN REACH AND BED ALARM ACTIVATED. WILL CONTINUE TO MONITOR.
[2020-01-22 19:20] VITALS: BP 118/65
--- NOTE | 2020-01-22 19:21 | NUR ---
REPORT FROM LORETA ESPARZA. PT NOTED RESTING IN BED WITH EYES CLOSED. PT STARTED TO VOMIT AT THIS TIME. PT SAT UP IN HIGH FOWLERS POSITIONS. SUCTION SET UP AT THIS TIME. COMPLETE BED BATH AND LINEN CHANGE PROVIDED. ORDERS RECEIVED FROM ELECTRIC CRANE OPERATOR PHYSICIAN, WILL MEDICATE ONCE AVAILABLE. PT ALSO INCONTINENT OF STOOL AT THIS TIME, MODERATE AMOUNT OF WATERY DARK YELLOW OUTPUT NOTED ON ROX. PERICARE PROVIDED AND NEW PURWIK APPLIED. CALL LIGHT WITHIN REACH AND BED ALARM FOR SAFETY. PT REPOSITIONED ON RIGHT SIDE WITH PILLOWS. WILL CONTINUE TO MONITOR.
--- NOTE | 2020-01-22 19:46 | NUR ---
PT MEDICATED WITH IV ZOFRAN AT THIS TIME. WILL CONTINUE TO MONITOR.
--- NOTE | 2020-01-22 21:20 | NUR ---
PT REPOSITIONED ON LEFT SIDE. PURWIK FUNCTIONING PROPERLY. NO APPARENT DISTRESS OR NAUSEA NOTED. CALL LIGHT WITHIN REACH. WILL CONTINUE TO MONITOR.
--- NOTE | 2020-01-22 23:45 | NUR ---
PT REPOSITIONED ON RIGHT SIDE. PURWIK FUNCTIONING PROPERLY. NO APPARENT DISTRESS OR NAUSEA NOTED. CALL LIGHT WITHIN REACH. WILL CONTINUE TO MONITOR.
--- NOTE | 2020-01-23 01:58 | NUR ---
PT REPOSITIONED ON LEFT SIDE. PURWIK FUNCTIONING PROPERLY. NO APPARENT DISTRESS OR NAUSEA NOTED. CALL LIGHT WITHIN REACH. WILL CONTINUE TO MONITOR.
[2020-01-23 03:51] VITALS: BP 123/73
--- NOTE | 2020-01-23 03:59 | NUR ---
PT REPOSITIONED ON BACK IN LOW FOWLERS POSITION. PURWIK FUNCTIONING PROPERLY. NO APPARENT DISTRESS OR NAUSEA NOTED. CALL LIGHT WITHIN REACH. WILL CONTINUE TO MONITOR.
[2020-01-23 05:58] LABS: HEMATOCRIT 34.1 % (37.0-47.0); HEMOGLOBIN 10.8 g/dl (12.0-16.0); MEAN CELL VOLUME 95.5 fL CALC (80.0-100.0); MEAN CORPUSCULAR HGB 30.3 pG CALC (26.0-32.0); MEAN CORPUSCULAR HGB CONC 31.7 g/dL CAL (32.0-36.0); RED BLOOD COUNT 3.57 mill/uL (4.20-5.60); RED CELL DISTRI WIDTH 15.5 % (11.5-15.5)
[2020-01-23 06:31] LABS: POTASSIUM 3.6 mmol/l (3.5-5.1)
[2020-01-23 06:48] LABS: CREATININE 2.6 mg/dL (0.5-1.0)
--- NOTE | 2020-01-23 07:35 | NUR ---
ASSESSMENT IS COMPLTED:IV SITE IS FREE FROM REDNESS OR EDEMA. HR IS REG,PULSES ARE STRONG ON RADIAL WITH WEAK PEDAL , DRESSING ON R FOOT IS CDI. BREATH SOUNDS ARE CLEAR,BILATERALLY. NO C/O PAIN VOICED. NOT FEELING LIKE EATING OR TAKING MEDS TODAY,. WILL ATTEMPT AGAIN. HELD INSULIN THIS AM. DUE TO NOT EATING AND BS WAS 108.
[2020-01-23 07:38] VITALS: BP 149/78
--- NOTE | 2020-01-23 09:30 | NUR ---
PT REFUSING MEDICATIONS THIS AM. DR GAMEZ IS AWARE
--- NOTE | 2020-01-23 10:49 | NUR ---
ATTEMPTED TO HAVE SPOUSE COME AND SEE PT , NUCLEAR AUXILIARY OPERATOR AND RETIREMENT STAES" NO DUE TO COVID". PT IS NEG FOR COVID.
--- NOTE | 2020-01-23 12:30 | NUR ---
PT IS RESTING WITH EYES CLOSED. NO DISTRESS NOTED. IV SITE IS FREE FROM REDNESS OR EDEMA.
--- NOTE | 2020-01-23 13:40 | NUR ---
PT REFUSING TO EAT ONLY WANTS WATER TO DRINK,. BEING CHANGED FROM SIDE TO SIDE, CONTINUE TO OBSERVE AND MONITOR.
[2020-01-23 15:25] VITALS: BP 161/78
[2020-01-23 19:05] VITALS: BP 165/70
--- NOTE | 2020-01-23 21:00 | NUR ---
PT REPOSITIONED W/ASSISTANCE OF AIDE. PUREWICK WAS SET ON HIGH CONTINUAL SUCTION, CHANGED TO LOW CONTINUAL SUCTION. PT NON-VERBAL AT THIS TIME. PILLOWS PLACED FOR PRESSURE POSITIONING. ST II TO COCCYX OPEN TO AIR, WILL PLACE AQUACILL TO COCCYX. R.LEG ELEVATED AND PILLOWS POSITIONED BETWEEN KNEES, HEEL PROTECTOR TO L.FOOT.
--- NOTE | 2020-01-23 21:46 | NUR ---
PT MEDICATED ORDERS RECEIVED. PT NON-VERBAL AND IS NOT RESPONDING EVEN WITH HOUSING COUNSELOR IN ROOM. PT HAS BEEN REPOSITIONED, PUREWICK PLACED AND SUCTION SET AT LOW CONTINUAL SUCTION. AQUACELL PLACED TO PT'S BUTTOCKS FOR STAGE II PRESSURE WOUND. BOOT TO R.FOOT, DRESSING IS CDI TO R.FOOT WRAPPED W/KURLEX. TOES ARE WARM TO TOUCH.
[2020-01-23 23:32] VITALS: BP 112/67
[2020-01-24 03:45] VITALS: BP 119/67
--- NOTE | 2020-01-24 03:50 | NUR ---
V/S ASSESSED AND PT REPOSITIONED AT THIS TIME. NO S/O DISTRESS NOTED. PT RECEIVED BEDBATH AT 0200. IV SITE WAS FOUND LEAKING, ACCESS REMOVED AND NEW IV SITE OBTAINED, IV WAS VERY DIFFICULT TO OBTAIN, MULTIPLE ATTEMPTS WERE MADE. WILL MONITOR CLOSELY FOR INFILTRATE. NEW SITE APPEARS HEALTHY AT THIS TIME. PT TOLERATED WELL.
[2020-01-24 04:55] LABS: HEMATOCRIT 34.3 % (37.0-47.0); HEMOGLOBIN 10.8 g/dl (12.0-16.0); MEAN CORPUSCULAR HGB 29.9 pG CALC (26.0-32.0); MEAN CORPUSCULAR HGB CONC 31.5 g/dL CAL (32.0-36.0); RED BLOOD COUNT 3.61 mill/uL (4.20-5.60); RED CELL DISTRI WIDTH 15.8 % (11.5-15.5)
[2020-01-24 05:08] LABS: BILIRUBIN, TOTAL 0.6 mg/dL (0.0-1.4); CREATININE 2.1 mg/dL (0.5-1.0); POTASSIUM 3.4 mmol/l (3.5-5.1)
--- NOTE | 2020-01-24 05:10 | NUR ---
PT REFUSES TO EAT OR DRINK. PUDDING AND PO FLUIDS OFFERED ON MULTIPLE OCCASIONS AND SHE SHOOK HER HEAD NO. NON-VERBAL.
[2020-01-24 05:18] LABS: ALBUMIN 2.7 g/dL (3.2-5.0); TOTAL PROTEIN 6.4 g/dL (6.3-8.2)
--- NOTE | 2020-01-24 06:17 | NUR ---
IV SITE TO LW FOUND INFILTRATED. IV REMOVED, HAND ELEVATED AND ICEPACK PLACED TO LH. NEW IV SITE ACCESS OBTAINED TO RW. PT REFUSES MEDICATION, REFUSES PO FLUIDS OR APPLESAUCE,PUDDING,ETC. WILL NOT ACCEPT ANYTHING PO AT THIS TIME.
[2020-01-24 07:36] VITALS: BP 163/75
--- NOTE | 2020-01-24 07:36 | NUR ---
PT RESTING IN BED, NO SIGNS OF DISTRESS NOTED, RESP EVEN AND UNLABORED. DISCUSSED POC, PT NON VERBAL, MAKES EYE CONTACT AND NODS IN RESPONSE TO QUESTIONS. PT GIVEN INSULIN, OFFERED PT BREAKFAST, PT DECLINED, ASSESSMENT COMPLETED, EDEMA TO GAUTAM, ELEVATED ON PILLOW. R ANKLE WRAPPED IN KERLEX AND IN A BOOT. CALL LIGHT IN REACH,CONTINUE TO MONITOR.
--- NOTE | 2020-01-24 09:20 | NUR ---
DISCUSSED POTASSIUM WITH PT, NODDED HEAD IN AGREEMENT. PT TOLERATED WELL TOOK MEDICATION WITH PUDDING. CALL LIGHT IN REACH,CONTINUE TO MONITOR.
--- NOTE | 2020-01-24 11:45 | NUR ---
PT HAS LUNCH TRAY, OFFERED PT MAGIC CUP, PT DECLINED SHAKING HER HEAD. ATTEMPTED TO GIVE PT GLUCERNA, PT DID NOT DRINK, NO SIGNS OF DISTRESS NOTED, PT YAWNING, CALL LIGHT IN REACH,CONTINUE TO MONITOR.
[2020-01-24 13:07] VITALS: BP 100/53
--- NOTE | 2020-01-24 14:03 | NUR ---
PT RESTING IN BED, AGAIN OFFERED PT SOMETHING TO EAT AND DRINK, PT DECLINED OFFER. CALL LIGHT IN REACH,CONTINUE TO MONITOR.
[2020-01-24 15:59] VITALS: BP 135/76
--- NOTE | 2020-01-24 17:00 | NUR ---
PT REPOSITIONED AND PUREWICK CHANGED. PT TOLERATED WELL. CALL LIGHT IN REACH,CONTINUE TO MONITOR.
[2020-01-24 19:08] VITALS: BP 122/68
--- NOTE | 2020-01-24 19:55 | NUR ---
PT SLEEPING, POSITIONED W/PILLOWS. PUREWICK IN PLACE TO LOW CONT SUCTION. LIGHTS ON LOW AND CALL LIGHT AT SIDE. PT REFUSED PO FLUIDS AT THIS TIME.
--- NOTE | 2020-01-24 21:45 | NUR ---
ASSESSMENT COMPLETED AT THIS TIME. NO S/O DISTRESS NOTED AT THIS TIME. PUREWICK IN PLACE W/YELLOW/CLOUDY URINE. PT IS POSITIONED W/PILLOWS, BOOT TO R.FOOT AND HEEL PROTECTOR TO L.FOOT.
--- NOTE | 2020-01-24 22:30 | NUR ---
BEDBATH PROVIDED, PICTURES OBTAINED OF WOUND TO COCCYX AND DRESSING PLACED/AQUACILL PAD. PT TOLERATED WELL. REPOSITIONED W/PILLOWS FOR COMFORT AND PRESSURE CARE.
--- NOTE | 2020-01-25 01:37 | NUR ---
pt sleeping soundly, no s/o distress noted.
[2020-01-25 03:46] VITALS: BP 125/74
--- NOTE | 2020-01-25 04:30 | NUR ---
DRESSING CHANGED TO R.FOOT/ANKLE. MINIMAL DRAINAGE TO WOUND, PICTURES HAVE BEEN OBTAINED. BOOT PLACED BACK ON FOOT, PT REPOSITIONED W/PILLOWS AND TO SIDE FOR PRESSURE CARE. PO FLUIDS OFFERED AGAIN, PT REFUSES EVEN ANY FLUIDS, REFUSES SNACK.
[2020-01-25 04:56] LABS: HEMATOCRIT 35.8 % (37.0-47.0); HEMOGLOBIN 10.7 g/dl (12.0-16.0); MEAN CELL VOLUME 99.4 fL CALC (80.0-100.0); MEAN CORPUSCULAR HGB 29.7 pG CALC (26.0-32.0); MEAN CORPUSCULAR HGB CONC 29.9 g/dL CAL (32.0-36.0); RED BLOOD COUNT 3.6 mill/uL (4.20-5.60); RED CELL DISTRI WIDTH 16.4 % (11.5-15.5)
[2020-01-25 05:05] LABS: ALBUMIN 2.6 g/dL (3.2-5.0); BILIRUBIN, TOTAL 0.5 mg/dL (0.0-1.4); CREATININE 1.9 mg/dL (0.5-1.0); POTASSIUM 3.3 mmol/l (3.5-5.1); TOTAL PROTEIN 6.2 g/dL (6.3-8.2)
--- NOTE | 2020-01-25 05:08 | NUR ---
LAB CALLED TO REPORT CRITICAL BUN OF 101 TRENDING DOWN FROM PREVIOUS OF 118. PHYSICIAN WILL BE NOTIFIED.
--- NOTE | 2020-01-25 07:20 | NUR ---
REPORT RECEIVED FROM KUNAL PEPE. PT RESTING IN BED ON RIGHT SIDE WITH EYES CLOSED; POSITIONED WITH PILLOWS. PT AWAKENS WITH TACTILE STIMULI; OPENS EYES, BUT IS NON VERBAL AND DOES NOT FOLLOW COMMANDS. NO SIGNS OF DISTRES. RESPIRATIONS EVEN AND UNLABORED ON ROOM AIR. RIGHT SIDE FLACCID WITH HAND CONTRACTURE. LUNGS ARE DIMINSIHED. DRESSING TO RIGHT FOOT CDI. SAFETY MEASURES IN [facility]. CALL LIGHT WITHIN REACH.
--- NOTE | 2020-01-25 07:45 | NUR ---
ALL MEDICATIONS CRUSHED AND GIVEN IN APPLE SAUCE. PT ATE MINIMAL BREAKFAST.
[2020-01-25 08:00] VITALS: BP 119/45
--- NOTE | 2020-01-25 12:00 | NUR ---
PT RESTING WITH NO SIGNS OF DISTRESS. TURNING AND REPOSITIONING WITH PILLOWS EVERY 2 HOURS. IV FLUIDS INFUSING WITHOUT DIFFICULTY; IV SITE APPEARS HEALTHY. SAFETY MEASURES IN PLACE. NEEDS ARE ANTICIPATED BY STAFF.
[2020-01-25 15:36] VITALS: BP 111/67
--- NOTE | 2020-01-25 17:22 | NUR ---
BLOOD SUGAR 59; ORANGE JUICE GIVEN WITH F/U OF 69. DINNER DELIVERED; ENCOURGING PATIENT TO EAT. MIRALAX ALSO GIVEN.
--- NOTE | 2020-01-25 18:42 | NUR ---
NURSE FROM &R UPDATED ON PT CONDITION.
[2020-01-25 18:47] VITALS: BP 120/70
--- NOTE | 2020-01-25 20:20 | NUR ---
PT HAD A MODERATE BOWEL MOVEMENT, PT CLEANED UP AND REPOSITIONED. PT NONVERBAL. RESPIRATIONS EVEN AND UNLABORED, LUNGS SOUNF CLEAR. PEDAL PULSES WEAK. SAFETY PRECAUTIONS IN PLACE. WILL CONTINUE TO MONITOR.
--- NOTE | 2020-01-26 00:05 | NUR ---
PT RESTING IN BED. RESPIRATIONS EVEN AND UNLABORED ON RA. NO S/S OF DISTRESS AT THIS TIME. SAFETY PRECAUTIONS IN PLACE. WILL CONTINUE TO MONITOR.
[2020-01-26 03:27] VITALS: BP 161/72
--- NOTE | 2020-01-26 04:01 | NUR ---
PT RESTING IN BED. NO S/S OF DISTRESS AT THIS TIME. SAFETY PRECAUTIONS IN PLACE. WILL CONTINUE TO MONITOR.
[2020-01-26 05:09] LABS: HEMATOCRIT 33.6 % (37.0-47.0); HEMOGLOBIN 10.3 g/dl (12.0-16.0); IMMATURE GRANULOCYTES 0.5 % (0.0-5.0); MEAN CELL VOLUME 98.5 fL CALC (80.0-100.0); MEAN CORPUSCULAR HGB 30.2 pG CALC (26.0-32.0); MEAN CORPUSCULAR HGB CONC 30.7 g/dL CAL (32.0-36.0); NEUT# 6.02 thou/uL (2.00-7.15); RED BLOOD COUNT 3.41 mill/uL (4.20-5.60); RED CELL DISTRI WIDTH 16.5 % (11.5-15.5)
[2020-01-26 05:34] LABS: CREATININE 1.8 mg/dL (0.5-1.0); POTASSIUM 3.3 mmol/l (3.5-5.1)
--- NOTE | 2020-01-26 07:00 | NUR ---
SHIFT CHANGE REPORT, PT SLEEPING IN RIGHT-SIDED POSITION, NO SIGN DISCOMFORT, IVF INFUSING, PUREWICK IN PLACE WITH CLOUDY STANISLAW URINE, BED IN LOWEST POSITION AND CALL THOMAS IN REACH.
[2020-01-26 08:02] VITALS: BP 103/40
--- NOTE | 2020-01-26 08:21 | NUR ---
ATTEMPTED TO FEED PT BUT SHE REFUSED AND SPAT OUT FOOD FROM MOUTH, REPOSITIONED IN SUPINE, WILL CONTINUE TO MONITOR.
--- NOTE | 2020-01-26 11:00 | NUR ---
RESTING IN SUPINE POSITION, REFUSED MEAL OR LIQUIDS, APPETITE VERY POOR, WILL CONTINUE TO MONITOR.
[2020-01-26 16:10] VITALS: BP 94/50
--- NOTE | 2020-01-26 16:20 | NUR ---
REPOSITIONED ON RIGHT SIDE, OFFERED ORAL FLUIDS BUT REFUSED, WILL CONTINUE TO MONITOR.
[2020-01-26 19:17] VITALS: BP 142/75
--- NOTE | 2020-01-26 20:45 | NUR ---
PT RESTING IN BED, RESPIRATIONS EVEN AND UNLABORED ON RA. LUNGS SOUND CLEAR. PEDAL PULSES WEAK. SAFETY PRECAUTIONS IN PLACE. WILL CONTINUE TO MONITOR.
--- NOTE | 2020-01-27 00:06 | NUR ---
PT RESTING IN BED. NO S/S OF DISTRESS AT HIS TIME. SAFETY PRECAUTIONS IN PLACE. WILL CONTINUE TO MONTIOR.
--- NOTE | 2020-01-27 03:56 | NUR ---
PT RESTING IN BED. NO S/S OF DISTRESS AT THIS TIME. SAFETY PRECAUTIONS IN PLACE. WILL CONTINUE TO MONITOR.
[2020-01-27 04:23] VITALS: BP 149/73
--- NOTE | 2020-01-27 07:15 | NUR ---
CHANGE OF SHIFT REPORT RECEIVED FROM KUNAL SPARKS. PT RESTING IN RIGHT LATERAL POSITION, HOB AT 30 DEGREES. PT REPOSITIONED TO SUPINE POSITION IN PREP FOR BREAKFAST.HORSES OR MULES TEAMSTER WILL CONTINUE TO MONITOR
[2020-01-27 07:35] VITALS: BP 133/64
[2020-01-27 07:43] LABS: CREATININE 1.6 mg/dL (0.5-1.0); POTASSIUM 3.2 mmol/l (3.5-5.1)
--- NOTE | 2020-01-27 09:36 | NUR ---
PATIENT AGREED TO DO EXERCISES TODAY. AAROME ON LLE, ABLE TO COMPLETE THE EXERCISES WITH TACTILE CUES: SLR, HIP ABDUCTION, KNEE FLEXION-EXTENSION, ANKLE PF-DF X 10 REPS X 1 SET ON EACH MOTIONS. PROME ON RLE DONE IN ALL PLANES X 10 REPS X 1 SET ON EACH MOTIONS. PT PERFORMED BED POSITIONING AFTER TREATMENT IN 70-80 DEG SUPPORTED LONG SITTING POSITION. AMPAC = 6
--- NOTE | 2020-01-27 12:00 | NUR ---
PT REPOSITIONED IN BED. PT WITH FLAT EFFECT. PT WITH POOR APPETITE ONLY AGREES TO DRINK 60ML OF ENSURE. SECURITY COORDINATOR WILL CONTINUE TO MONITOR.
[2020-01-27 12:43] LABS: ALBUMIN 2.5 g/dL (3.2-5.0)
[2020-01-27 15:16] VITALS: BP 145/72
--- NOTE | 2020-01-27 16:14 | NUR ---
PT RESTING COMFORTABLY. NO S/S OF DISTRESS. PT WITH FLAT EFFECT. PT REPOSITIONED FOR COMFORT. ARMS ELEVATED ON PILLOWS. LEAD SYSTEMS ENGINEER WILL CONTINUE TO MONITOR
[2020-01-27 18:25] VITALS: BP 133/73
--- NOTE | 2020-01-27 22:42 | NUR ---
FLUIDS REPLENISHED, PT WAS SLEEPING, NO S/O DISTRESS NOTED. PT REFUSED PO FLUIDS AT THIS TIME.
--- NOTE | 2020-01-27 23:22 | NUR ---
PT REPOSITIONED, PROVIDED PO FLUIDS, MOUTH APPEARS VERY DRY, REFUSING PO FLUIDS. MOUTH CARE ATTEMPTED. PT IS STATING, "LEAVE ME ALONE."
[2020-01-28 04:05] VITALS: BP 126/81
--- NOTE | 2020-01-28 04:19 | NUR ---
PT PUREWICK REPLACED AND PT REPOSITIONED. 350CC OUT OF CLOUDY YELLOW URINE.
[2020-01-28 05:19] LABS: HEMATOCRIT 30.5 % (37.0-47.0); HEMOGLOBIN 9.9 g/dl (12.0-16.0); MEAN CELL VOLUME 94.7 fL CALC (80.0-100.0); MEAN CORPUSCULAR HGB 30.7 pG CALC (26.0-32.0); MEAN CORPUSCULAR HGB CONC 32.5 g/dL CAL (32.0-36.0); RED BLOOD COUNT 3.22 mill/uL (4.20-5.60); RED CELL DISTRI WIDTH 16.9 % (11.5-15.5)
--- NOTE | 2020-01-28 05:41 | NUR ---
PT MEDICATED ORDERS PROVIDE AND IVF REPLENISHED AT THIS TIME. PT ACCEPTED ONE BITE OF APPLESAUCE, ONE SIP OF WATER, REFUSED ANY ADDITIONAL PO FLUIDS.
[2020-01-28 05:43] LABS: ALBUMIN 2.4 g/dL (3.2-5.0); BILIRUBIN, TOTAL 0.5 mg/dL (0.0-1.4); CREATININE 1.3 mg/dL (0.5-1.0); POTASSIUM 3.2 mmol/l (3.5-5.1); TOTAL PROTEIN 5.5 g/dL (6.3-8.2)
[2020-01-28 05:54] LABS: MAGNESIUM 1.5 mg/dL (1.6-2.3)
--- NOTE | 2020-01-28 07:00 | NUR ---
SHIFT CHANGE REPORT, PT RESTING IN BED IN SUPINE POSITION, EYES CLOSED, NO SIGN DISCOMFORT, IVF INFUSING, PUREWICK IN PLACE, ALL NEEDS ANTICIPATED AND ADDRESSED, CALL THOMAS IN [place].
[2020-01-28 08:11] VITALS: BP 135/64
--- NOTE | 2020-01-28 12:00 | NUR ---
REFUSED MEAL, RESTING COMFORTABLY
[2020-01-28 15:40] VITALS: BP 161/91
--- NOTE | 2020-01-28 16:00 | NUR ---
RESTING COMFORTABLY, NO SIGN DISCOMFORT, DRESSINGS TO COCCYX AND RIGHT LEG CHANGED
[2020-01-28 19:00] VITALS: BP 174/86
--- NOTE | 2020-01-28 19:00 | NUR ---
REPORT FROM LAURE SYED. PT RESTING IN BED WITH EYES CLOSED. NO APPARENT DISTRESS NOTED. PT WAKES TO VERBAL STIMULI. PURWIK IN PLACE. CALL LIGHT WITHIN REACH. WILL CONTINUE TO MONITOR.
[2020-01-28 21:05] VITALS: BP 133/65
--- NOTE | 2020-01-28 23:02 | NUR ---
PT REPOSITIONED WITH PILLOWS. PURWIK FUNCTIONING PROPERLY WITH CLOUDY STANISLAW OUTPUT NOTED. DRESSINGS REMAIN CDI. NO APPARENT DISTRESS NOTED. CALL LIGHT WITHIN REACH. WILL CONTINUE TO MONITOR.
--- NOTE | 2020-01-29 03:08 | NUR ---
PT RESTING IN BED WITH EYES CLOSED. PURWIK FUNCTIONING PROPERLY WITH CLOUDY STANISLAW OUTPUT NOTED. DRESSINGS REMAIN CDI. NO APPARENT DISTRESS NOTED. CALL LIGHT WITHIN REACH. WILL CONTINUE TO MONITOR.
[2020-01-29 04:25] VITALS: BP 155/74
[2020-01-29 05:46] LABS: ALBUMIN 2.4 g/dL (3.2-5.0); CREATININE 1.2 mg/dL (0.5-1.0); POTASSIUM 3.5 mmol/l (3.5-5.1)
--- NOTE | 2020-01-29 07:05 | NUR ---
REPORT RECEIVED FROM VILMA GREEN. PT RESTING IN BED ON RIGHT SIDE WITH EYES CLOSED; AWAKENS TO VERBAL STIMULI; NON VERBAL. FOLLOWS COMMANDS TO OPEN MOUTH. NO SIGNS OF PAIN OR DISCOMFORT. RESPIRATIONS EVEN AND UNLABORED ON ROOM AIR. LUNGS ARE CLEAR; HR REGULAR WITH WEAK PULSES. SORES TO MOUTH AND TONGUE ARE IMPROVED. DRESSING TO RLE CDI WITH BOOT IN PLACE. AQUCEL DRESSING CDI TO BUTTOCK. PT TURNED AND REPOSITIONED EVERY [address]ET[address] MEASURES IN PLACE. CALL LIGHT WITHIN REACH.
--- NOTE | 2020-01-29 07:40 | NUR ---
AM MEDS CRUSHED AND GIVEN WITH BREAKFAST. PT ATE MINIMALLY; TOOK A FEW BITES OF MAGIC CUP ICE CREAM WITH ENCOURAGEMENT.
[2020-01-29 08:00] VITALS: BP 128/53
--- NOTE | 2020-01-29 08:15 | NUR ---
DRESSING CHANGED TO RIGHT FOOT; IN ADDITION TO WOUNDS TO TOP AND LATERAL SIDES OF FOOT THERE IS A PRESSURE ULCER BETWEEN 4TH AND 5TH DIGITS; PHOTO TAKEN AND PLACED IN CHART. UNABLE TO FEEL A PULSE TO DORSALIS PEDIS OR POS TIBIAL; STRONG RIGHT POPLITEAL PULSE. UNABLE TO FIND WITH DOPPLER; POOR CAP REFILL AND DRY CRACKED SKIN NOTED TO FOOT SURROUNDING WOUNDS. PAYROLL COORDINATOR NOTIFIED. NEW DRESSING APPLIED.
--- NOTE | 2020-01-29 11:20 | NUR ---
DR. GAMEZ AT BEDSIDE FOR EVAL. NEW ORDERS FOR WOUND CONSULT AND ULTRASOUND OF RIGHT FOOT.
--- NOTE | 2020-01-29 12:58 | NUR ---
DR. BRITO AT BEDSIDE FOR WOUND EVAL. NEW ORDERS TO CLEANSE ALL OPEN AREAS WITH IODINE AND WRAP WITH KERLEX UP TO MID HENNESSY.
--- NOTE | 2020-01-29 13:40 | NUR ---
YAHIR, NURSE FROM [facility], CALLED FOR UPDATE. QUESTIONS ANSWERED TO SATISFACTION.
--- NOTE | 2020-01-29 14:40 | NUR ---
GOSPEL WORKER AT BEDSIDE.
[2020-01-29 16:06] VITALS: BP 133/68
--- NOTE | 2020-01-29 17:00 | NUR ---
PT CONTINUES TO BE TURNED EVERY 2 HOURS; AIRMATRESS ORDERED. AQUACEL DRESSING TO COCCYX REMAINS CDI. INCONTINENT OF BOWELS; HYGIENE PROVIDED AND PURWIK CATHETER REPLACED. SAFETY MEASURES IN PLACE. CALL LIGHT WITHIN REACH.
--- NOTE | 2020-01-29 19:02 | NUR ---
REPORT FROM JOSEPH SYED. PT RESTING IN BED WITH EYES CLOSED. NO APPARENT DISTRESS NOTED. PT WAKES TO VERBAL STIMULI. PURWIK IN PLACE. CALL LIGHT WITHIN REACH. WILL CONTINUE TO MONITOR.
[2020-01-29 19:52] VITALS: BP 130/68
--- NOTE | 2020-01-30 03:10 | NUR ---
COMPLETE BED BATH PROVIDED. PT REPOSITIONED FOR COMFORT. NEW PURWIK PLACED. PT REPOSITIONED FOR COMFORT. DRESSING REMAIN CDI. CALL LIGHT WITHIN REACH. WILL CONTINUE TO MONITOR.
[2020-01-30 04:18] VITALS: BP 96/53
[2020-01-30 07:35] VITALS: BP 106/43
--- NOTE | 2020-01-30 07:40 | NUR ---
REPORT RECEIVED FROM VILMA GREEN. PT RESTING IN BED ON RIGHT SIDE WITH EYES CLOSED AND NO SIGNS OF DISTRESS; AWAKENS TO VERBAL STIMULI. RESPIRATIONS EVEN AND UNLABORED ON ROOM AIR. VSS. LUNGS CLEAR; DRESSING TO RIGHT FOOT CDI AND BOOT IN PLACE. PURWIK CATHETER IN PLACE DRAINING CLOUDY YELLOW URINE. SAFETY MEASURES IN PLACE. NEEDS ARE ANTICIPATED BY STAFF.
--- NOTE | 2020-01-30 10:10 | NUR ---
01/29/20 PT note Patient is seen for PNF all extremities with the exception of the right UE . She was able to sit EOB. She managed to maintain her static sitting balance for 2 min. She is somnolent and does not answer my questions (through product development scientist Dayton Santana) Her Am Pac is 6
--- NOTE | 2020-01-30 11:44 | NUR ---
PT MORE VERBAL AND SPEAKING SYRIAC. C/O PAIN TO RIGHT LEG. REPOSITIONED AND RLE ELEVATED ON PILLOW.
--- NOTE | 2020-01-30 13:09 | NUR ---
ULTRAM GIVEN FOR C/O PAIN TO RIGHT FOOT. CRUSHED MED IN APPLESAUCE. IV FLUIDS INFUSING WITHOUT DIFFICULTY; IV SITE APPEARS HEALTHY. SAFETY MEASURES IN PLACE. CALL LIGHT WITHIN REACH.
[2020-01-30 15:20] VITALS: BP 97/56
--- NOTE | 2020-01-30 16:08 | NUR ---
PT TRANSFERRED FROM REGULAR MATRESS TO AIR MATRESS.
--- NOTE | 2020-01-30 18:25 | NUR ---
DRESSING CHANGED TO RIGHT FOOT; PT TOLERATED WELL.
[2020-01-30 19:05] VITALS: BP 93/54
--- NOTE | 2020-01-30 20:41 | NUR ---
ASSESSMENT COMPLETED; NO RESP. DISTRESS NOTED. PT. ABLE TO SPEAK VERY MINIMAL, ABLE TO TELL THIS DIGITAL TECHNICIAN HER NAME. PURE WIC IN PLACE. RIGHT FOOT WITH DRESSING IN PLACE ALONG WITH BOOT AND IS ELEVATED. INSULIN GIVEN PER SLIDING SCALE AND PT. DRANK SOME ENSURE AT THIS TIME. CALL LIGHT IS IN REACH. WILL CONTINUE TO MONITOR.
--- NOTE | 2020-01-30 23:30 | NUR ---
ATTEMPTED TO RESTART IV DUE TO IT NEEDING TO BE CHANGED TOMORROW AND WAS UNSUCCESSFUL. IV SITE TO RFA WORKS WELL AND FLUSHED WITH NS AND ORDERED IVF STARTED. CALL LIGHT IS IN REACH.
--- NOTE | 2020-01-31 03:25 | NUR ---
RESTING IN BED WITH EYES CLOSED AND AROUSES EASILY; NO DISTRESS NOTED; DENIES NEEDS.
[2020-01-31 04:08] VITALS: BP 149/76
[2020-01-31 04:58] LABS: HEMATOCRIT 33.7 % (37.0-47.0); HEMOGLOBIN 10.5 g/dl (12.0-16.0); MEAN CELL VOLUME 95.2 fL CALC (80.0-100.0); MEAN CORPUSCULAR HGB 29.7 pG CALC (26.0-32.0); MEAN CORPUSCULAR HGB CONC 31.2 g/dL CAL (32.0-36.0); RED BLOOD COUNT 3.54 mill/uL (4.20-5.60); RED CELL DISTRI WIDTH 16.5 % (11.5-15.5)
[2020-01-31 05:12] LABS: ANION GAP 10 (6-22 (CALC)); BUN 50 mg/dL (8-23); BUN/CREATININE RATIO 49 (12-20 (CALC)); CARBON DIOXIDE 18 mmol/l (22-30); CHLORIDE 114 mmol/l (95-108); GFR 52 ML/MIN (>=60 (CALC)); GFR FOR AFR.AMER. > 60 ML/MIN (>=60 (CALC)); POTASSIUM 3.7 mmol/l (3.5-5.1); SODIUM 139 mmol/l (137-146)
--- NOTE | 2020-01-31 05:25 | NUR ---
PT. OFFERED PO FLUIDS AND SNACK; PT. TOOK IN MINIMAL.
--- NOTE | 2020-01-31 07:00 | NUR ---
REPORT RECEIVED FROM KUNAL WALKER. PT RESTING IN BED ON RIGHT SIDE; POSITIONED WITH PILLOWS AND ON AIR MATRESS. NO DISTRESS NOTED; OPENS EYES TO VERBAL STIMULI. RESPIRATIONS EVEN AND UNLABORED ON ROOM AIR. PURWIK CATHETER IN PLACE DRAINING CLEAR YELLOW URINE. LUNGS ARE CLEAR. DRESSING TO RIGHT FOOT CDI. SAFETY MEASURES IN PLACE. CALL LIGHT WITHIN REACH.
--- NOTE | 2020-01-31 07:47 | NUR ---
TURNING HEAD AWAY AND CLOSING MOUTH WHEN OFFERING BREAKFAST. PT DID COOPERATE WHEN EXPLAINED THAT SHE WAS BEING GIVEN PAIN MEDICATION. TOOK ULTRAM ALONG WITH AM PO MEDS CRUSHED WITH SIPS OF GLUCERNA. WILL CONTINUE TO ENCOURAGE NUTRITION.
[2020-01-31 08:00] VITALS: BP 106/50
--- NOTE | 2020-01-31 08:45 | NUR ---
PT VERBAL AND SPEAKING IN [place]. VILMA MAO AT BEDSIDE TO TRANSLATE. PT DENIES PAIN AT THIS TIME. NO REQUESTS OR CONCERNS. NOVOLIN 70/30 HELD DUE TO AM ACCU CHECK OF 126 AND PT DID NOT EAT BREAKFAST. WILL CONTINUE TO MONITOR.
--- NOTE | 2020-01-31 12:46 | NUR ---
PT UP TO BEDSIDE CHAIR WITH SHELLEY LIFT. DRESSING CHANGED TO RIGHT FOOT.
--- NOTE | 2020-01-31 13:23 | NUR ---
PT SHELLEY LIFTED BACK INTO BED WITH 2 STAFF MEMBERS. DRESSING TO COCCYX REPLACED; SITE CLEANSED WITH SALINE, PAT DRY, SURE PREP APPLIED AND AQUACEL DRESSING. PHOTO TAKEN AND PLACED IN CHART. PT POSITIONED ONTO LEFT SIDE WITH PILLOWS; CONTINUES ON AIR MATRESS.
[2020-01-31 16:04] VITALS: BP 91/48
--- NOTE | 2020-01-31 18:34 | NUR ---
[facility] NURSE CALLED FOR UPDATE.
[2020-01-31 19:09] VITALS: BP 110/61
--- NOTE | 2020-01-31 20:41 | NUR ---
ASSESSMENT COMPLETED. PT. DENIES NEEDS/PAIN. RIGHT SIDE FLACCID R/T HX STROKE; DRESSING TO RIGHT FOOT CDI AND BOOT IN PLACE. UNABLE TO ASSESS RIGHT PEDAL PULSE DUE TO DRESSING; POPLITEAL PULSE STRONG AND PRESENT. PT. AFFECT IS FLAT. PUREWIC IN PLACE. ENCOURAGED TO CALL FOR ANY NEEDS. CALL LIGHT IS IN REACH.
--- NOTE | 2020-02-01 00:05 | NUR ---
RESTING IN BED WITH EYES CLOSED; RESP. EVEN AND UNLABORED. CALL LIGHT IS IN REACH.
--- NOTE | 2020-02-01 02:30 | NUR ---
RESTING IN BED WITH EYES CLOSED; NO DISTRESS NOTED.
--- NOTE | 2020-02-01 04:18 | NUR ---
PT. RESTING IN BED WITH EYES CLOSED; RESP. EVEN AND UNLABORED. CALL LIGHT IS IN REACH.
[2020-02-01 04:21] VITALS: BP 119/58
[2020-02-01 04:34] VITALS: BP 98/48
[2020-02-01 05:18] LABS: HEMATOCRIT 36.8 % (37.0-47.0); HEMOGLOBIN 11.2 g/dl (12.0-16.0); MEAN CELL VOLUME 98.7 fL CALC (80.0-100.0); MEAN CORPUSCULAR HGB CONC 30.4 g/dL CAL (32.0-36.0); RED BLOOD COUNT 3.73 mill/uL (4.20-5.60); RED CELL DISTRI WIDTH 16.7 % (11.5-15.5)
--- NOTE | 2020-02-01 05:19 | NUR ---
PT. GIVEN HER SHERBERT WITH MINIMAL SHERBERT. PT. HAS POOR APPETITE. ENCOURAGED PO INTAKE.
[2020-02-01 05:22] LABS: ALBUMIN 2.6 g/dL (3.2-5.0); ALKALINE PHOSPHATASE 245 u/l (38-126); ANION GAP 9 (6-22 (CALC)); BILIRUBIN, TOTAL 0.6 mg/dL (0.0-1.4); BUN 47 mg/dL (8-23); BUN/CREATININE RATIO 48 (12-20 (CALC)); CARBON DIOXIDE 20 mmol/l (22-30); CHLORIDE 112 mmol/l (95-108); GFR 52 ML/MIN (>=60 (CALC)); GFR FOR AFR.AMER. > 60 ML/MIN (>=60 (CALC)); POTASSIUM 3.8 mmol/l (3.5-5.1); SGOT/AST 57 u/l (9-36); SODIUM 137 mmol/l (137-146); TOTAL PROTEIN 5.9 g/dL (6.3-8.2)
--- NOTE | 2020-02-01 07:10 | NUR ---
REPORT RECEIVED FROM KUNAL WALKER. RESTING ON AIRMATTRESS BED ON RIGHT SIDE AND NO SIGNS OF DISTRESS; AWAKENS TO VERBAL STIMULI. RESPIRATIONS EVEN AND UNLABORED ON ROOM AIR. ACCU CHECK 168; VSS. SAFETY MEASURES IN PLACE. CALL LIGHT WITHIN REACH.
[2020-02-01 07:54] VITALS: BP 109/55
--- NOTE | 2020-02-01 08:30 | NUR ---
ULTRAM GIVEN FOR RIGHT FOOT DISCOMFORT. AM MEDS CRUSHED AND GIVEN WITH BREAKFAST.
--- NOTE | 2020-02-01 10:19 | NUR ---
PURWIK CATHETER DRAINING A LIGHT BROWN CLOUDY URINE. URINE SAMPLE OBTAINED VIA STRAIGHT CATH WITH STERILE TECHNIQUE AND SENT TO LAB. URINE COLLECTED WAS YELLOW AND CLOUDY WITH SEDIMENT.
[2020-02-01 10:42] LABS: URINE BILIRUBIN - DIPSTICK NEGATIVE (NEGATIVE); URINE BLOOD DIPSTICK LARGE (NEGATIVE); URINE COLOR YELLOW; URINE GLUCOSE - DIPSTICK 100 mg/dL (NEGATIVE); URINE KETONE TRACE mg/dL (NEGATIVE); URINE NITRITE - DIPSTICK NEGATIVE (Negative); URINE PH 6.5 (4.5-8.0); URINE PROTEIN - DIPSTICK 30 mg/dL (NEG-TRACE); URINE UROBILINOGEN - DIPSTICK 0.2 E.U./dL (0.2)
[2020-02-01 10:43] LABS: URINE LEUK ESTERASE LARGE (NEGATIVE)
[2020-02-01 10:44] LABS: URINE BACTERIA MANY hpf; URINE EPITHELIAL CELLS MODERATE EPI/hpf (0-FEW); URINE MUCUS MANY hpf (NONE-FEW); URINE WBC 20-50 WBC/hpf (0-5)
[2020-02-01] MEDS ORDERED: MEDDOSEPAK PO ×2 (10:56)
--- NOTE | 2020-02-01 15:03 | NUR ---
IV SITE DISCONTINUED; CATHETER TIP INTACT; PT TOLERATED WELL. DRESSING TO RIGHT FOOT CHANGED.
--- NOTE | 2020-02-01 15:07 | NUR ---
CONSENT OBTAINED FROM SON, SANDRA TO DISCHARGE PT BACK TO [facility]; CONFIRMED WITH SECOND NURSE. TRANPORTATION ETA DIRECTOR DERMATOLOGY 1600.
--- NOTE | 2020-02-01 16:05 | NUR ---
PT note Attempted x 2 to see patient. She was with nursing and then with medical. Will attempt later this PM
--- NOTE | 2020-02-01 17:06 | NUR ---
Discharge instructions given. Patient verbalizes understanding of same. Discharged in stable condition via Wheelchair to [facility] with staff. All belongings sent with pt.
--- NOTE | 2020-02-01 17:19 | NUR ---
REPORT GIVEN TO ELLE AT [facility].
--- NOTE | 2020-02-01 19:17 | NUR ---
CALLED [facility] RODRIGUEZ FOR DISCHARGE OF PT AND PICK FOR AIR MATTRESS. SPOKE TO BELLA GAVE CONFIRMATION NUMBER [id number].
--- NOTE | 2020-02-03 14:31 | NUR ---
FAXED URINE CX RESULTS TO [facility] PER DR GAMEZ'S REQUEST
== END 2020-02-01 17:10 | DRG 683 ==
LOC: ED 20:00 → ED-I 21:38 → ED 21:48 → MS2 21:49
PROVIDERS: Family Medicine; Internal Medicine; Internal Medicine Nephrology; Nurse Practitioner Family; ADMIT Internal Medicine; ATTEND Internal Medicine
DX: N17.9 Acute kidney failure, unspecified (principal); N39.0 Urinary tract infection, site not specified; E87.0 Hyperosmolality and hypernatremia; E87.2 Acidosis; R64 Cachexia; T50.915A Adverse effect of multiple unspecified drugs, medicaments and biological substances, initial encounter; I12.9 Hypertensive chronic kidney disease with stage 1 through stage 4 chronic kidney disease, or unspecified chronic kidney disease; E11.22 Type 2 diabetes mellitus with diabetic chronic kidney disease; N18.3 Chronic kidney disease, stage 3 (moderate); D63.1 Anemia in chronic kidney disease; E11.51 Type 2 diabetes mellitus with diabetic peripheral angiopathy without gangrene; F03.90 Unspecified dementia, unspecified severity, without behavioral disturbance, psychotic disturbance, mood disturbance, and anxiety; E03.9 Hypothyroidism, unspecified; E86.0 Dehydration; L89.892 Pressure ulcer of other site, stage 2; K13.79 Other lesions of oral mucosa; E87.8 Other disorders of electrolyte and fluid balance, not elsewhere classified; E87.6 Hypokalemia; E83.42 Hypomagnesemia; R62.7 Adult failure to thrive; F41.9 Anxiety disorder, unspecified; F32.9 Major depressive disorder, single episode, unspecified; B96.89 Other specified bacterial agents as the cause of diseases classified elsewhere; Z11.59 Encounter for screening for other viral diseases; Z86.73 Personal history of transient ischemic attack (TIA), and cerebral infarction without residual deficits; Z68.21 Body mass index [BMI] 21.0-21.9, adult; Z79.4 Long term (current) use of insulin; Z74.01 Bed confinement status
CPT/HCPCS: J3475

== ENCOUNTER 2020-03-05 05:12 | Emergency (ER) | payer MEDICARE, OTHER ==
[~2020-03-05] VITALS: Ht 157.5 cm; Wt 70.4 kg
[~2020-03-05 05:12] MED LIST changes: +DOXYCYCL HYC100 MG PO; +MEDDOSEPAK PO; +MIRTAZAPINE15 MG PO
[2020-03-05 06:26] LABS: HEMATOCRIT 37.1 % (37.0-47.0); HEMOGLOBIN 10.9 g/dl (12.0-16.0); IMMATURE GRANULOCYTES 0.3 % (0.0-5.0); MEAN CORPUSCULAR HGB 31.4 pG CALC (26.0-32.0); MEAN CORPUSCULAR HGB CONC 29.4 g/dL CAL (32.0-36.0); NEUT# 4.06 thou/uL (2.00-7.15); RED BLOOD COUNT 3.47 mill/uL (4.20-5.60); RED CELL DISTRI WIDTH 17.8 % (11.5-15.5)
[2020-03-05 06:27] LABS: URINE BLOOD DIPSTICK MODERATE (NEGATIVE); URINE COLOR YELLOW; URINE GLUCOSE - DIPSTICK NEGATIVE (NEGATIVE); URINE KETONE TRACE mg/dL (NEGATIVE); URINE NITRITE - DIPSTICK NEGATIVE (Negative); URINE PROTEIN - DIPSTICK 100 mg/dL (NEG-TRACE); URINE UROBILINOGEN - DIPSTICK 0.2 E.U./dL (0.2)
[2020-03-05 06:28] LABS: MEAN CELL VOLUME 106.9 fL CALC (80.0-100.0)
[2020-03-05 06:28] LABS: URINE BILIRUBIN - DIPSTICK NEGATIVE (NEGATIVE); URINE LEUK ESTERASE LARGE (NEGATIVE)
[2020-03-05 06:39] LABS: ALBUMIN 2.8 g/dL (3.2-5.0); POTASSIUM 4.5 mmol/l (3.5-5.1); TOTAL PROTEIN 6.1 g/dL (6.3-8.2)
[2020-03-05 06:39] LABS: URINE WBC TNTC WBC/hpf (0-5)
[2020-03-05 06:40] LABS: URINE BACTERIA MANY hpf; URINE SQUAMOUS EPITHELIAL CELL FEW EPI/hpf (0-FEW)
[2020-03-05 07:07] LABS: BILIRUBIN, TOTAL 1.4 mg/dL (0.0-1.4); CREATININE 2.1 mg/dL (0.5-1.0)
[2020-03-05 08:40] VITALS: BP 98/51
== END 2020-03-05 08:40 | disposition short-term general hospital (02) ==
LOC: ED 05:12 → ED-I 05:32 → ED 05:32 → ED-I 06:40 → ED 08:40
PROVIDERS: Family Medicine
DX: J18.9 Pneumonia, unspecified organism (principal); N39.0 Urinary tract infection, site not specified; R79.89 Other specified abnormal findings of blood chemistry; I10 Essential (primary) hypertension; E11.9 Type 2 diabetes mellitus without complications; E03.9 Hypothyroidism, unspecified; F03.90 Unspecified dementia, unspecified severity, without behavioral disturbance, psychotic disturbance, mood disturbance, and anxiety; I69.951 Hemiplegia and hemiparesis following unspecified cerebrovascular disease affecting right dominant side; B96.89 Other specified bacterial agents as the cause of diseases classified elsewhere; Z20.828 Contact with and (suspected) exposure to other viral communicable diseases